=== PATIENT | female | born 1965 | race Caucasian/White ===

== ENCOUNTER 2020-05-23 23:38 | Emergency (ER) | payer OTHER ==
[~2020-05-23] VITALS: Ht 165.1 cm; Wt 84.4 kg
[2020-05-23 23:48] VITALS: Ht 165.1 cm; Wt 84.4 kg
[2020-05-24 00:35] VITALS: BP 127/79
== END 2020-05-24 00:35 | disposition home or self-care (01) ==
LOC: ED 23:38
DX: L27.0 Generalized skin eruption due to drugs and medicaments taken internally (principal)